=== PATIENT | female | born 1990 | race Caucasian/White ===

== ENCOUNTER 2020-10-06 12:01 | Emergency (ER) | payer OTHER ==
[~2020-10-06] VITALS: Ht 160 cm; Wt 77.1 kg
[2020-10-06 12:13] VITALS: BP 127/66
[2020-10-06] MEDS ORDERED: LEVO750T46 PO (12:26)
[2020-10-06] MEDS ORDERED: SULF1TAB48 PO (12:26)
[2020-10-06] MEDS ORDERED: TDAP [DIPH/PERTUSSIS/TET] 0.5 ML VIAL IM ONE ×2 (13:00)
--- NOTE | 2020-10-06 13:21 | NUR ---
Patient discharged to home in stable condition. Written and verbal after care instructions given. Patient verbalizes understanding of instruction.
== END 2020-10-06 13:21 | disposition home or self-care (01) ==
LOC: ER 12:12
DX: S91.332A Puncture wound without foreign body, left foot, initial encounter (principal); Z79.899 Other long term (current) drug therapy; W22.8XXA Striking against or struck by other objects, initial encounter; Y93.89 Activity, other specified; Y92.89 Other specified places as the place of occurrence of the external cause; Y99.8 Other external cause status
CPT/HCPCS: 73630-TC; 90715